=== PATIENT | female | born 1945 | race Caucasian/White ===

== ENCOUNTER → 2016-04-01 | Outpatient (CLI) | payer MEDICARE ==
--- OUTSIDE RECORDS SUMMARY | 2016-04-01 13:11 | XMS REPORT | Continuity of Care Document ---
Author Author [facility] Organization [facility] Address Unknown Phone Unavailable Care Team Providers Care Electric Organ Checker Name Role Phone MayurMaldonado PCP [phone] Source Comments Some departments are not documenting in the electronic medical record. If you do not see the information that you expected, contact Release of Information in the Health Information Management department at [phone] for further assistance in locating additional records.[facility] Active Allergies and Adverse Reactions Allergen Noted Date Severity Reactions Comments Sulfa (Sulfonamide 07/31/2014 Low NAUSEA ONLY Antibiotics) Current Medications Prescription Sig. Disp. Refills Start End Date Status Date alendronate (FOSAMAX) 70 Take 70 mg by mouth every Active mg tablet 7 days. loratadine (CLARITIN) 10 Take 10 mg by mouth Active mg tablet daily. cholecalciferol(+) Take 2,000 Units by mouth Active (VITAMIN D-3) 2,000 unit daily. tablet CALCIUM CARBONATE Take 600 mg by mouth Active (CALTRATE 600 PO) daily. DOCOSAHEXANOIC ACID/EPA Take 1,200 mg by mouth Active (FISH OIL PO) daily. 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 Botello is a female who presented [facility] on 08/04[facility]2014 at age 68 for evaluation of left breast cancer. She felt a lump at the end of May 2014. Left breast sono-guided biopsy 07/19/14 ([place], [place]) revealed grade 3, HER2 positive invasive ductal carcinoma. Ms. Botello underwent left lumpectomy/SLNB on 08/17/14; surgical pathology showed a 2.4 cm IDC and the new medial margin showed 2 foci of high grade DCIS less than 1 mm from the margin. There were 3 negative SLNs, LVSI was present. Her pathology was presented at Tumor Conference and re-excision was not recommended. She completed adjuvant chemotherapy on 12/06/14 radiation therapy on 02/22/15. BREAST IMAGING: Mammogram: -- Bilateral screening mammogram 06/21/14 ([place], [place]) revealed a focal asymmetry in the left breast medial to the nipple. There were no right breast abnormalities. -- Bilateral diagnostic mammogram 08/04/14 () revealed no right breast abnormalities. In the left breast, a clip was seen just superior to the known cancer. The cancer measured approximately 2 cm. Ultrasound: -- Left breast ultrasound 07/19/14 ([place], [place]) revealed a 1.2 cm solid mass at 12:00. There was a 4 mm cyst in the breast. -- Bilateral breast ultrasound 08/04/14 () revealed no abnormalities in the right breast. In the left breast there was a 2.4 cm mass at 12:00, 3 cm FTN. The clip was no definitely seen by ultrasound. There was no axillary adenopathy. They were waiting on her outside imaging for comparison. REPRODUCTIVE HEALTH: Age at first Menarche: 15 Age at First Live : 26 Age at Menopause: 50 : 4 Para: 4 PERTINENT PMH: HLD, osteoporosis FAMILY HISTORY: No family history of breast, ovarian, prostate or pancreatic cancer PHYSICAL EXAM on PRESENTATION: Right - No palpable breast masses. No skin, nipple, or areolar change. Left - 2 x 2 cm mass at 12:00. No supraclavicular or axillary adenopathy. MEDICAL ONCOLOGY: Dr. Alonso ADJUVANT THERAPY: Adjuvant TCH Present therapy: Herceptin REFERRED BY: Dr. Maldonado Merchant Immunizations Name Dates Previously Given Next Due Flu Vaccine Trivalent >64 11/29/2014 Yo High-dose (Preservative Free) Social History Tobacco Use Types Packs/Day Years Used Date Never Smoker Alcohol Use Drinks/Week oz/Week Comments No Last Filed Vital Signs Vital Sign Reading Time Taken Blood Pressure 135/83 12/10/2015 11:24 AM CDT Pulse 60 12/10/2015 11:24 AM CDT Temperature 36.5 C (97.7 F) 12/10/2015 11:24 AM CDT Respiratory Rate 17 12/10/2015 9:44 AM CDT Height 1.575 m (5' 2") 12/10/2015 11:24 AM CDT Weight 67.586 kg (149 lb) 12/10/2015 11:24 AM CDT Body Mass Index 27.25 12/10/2015 11:24 AM CDT Oxygen Saturation 100% 12/10/2015 11:24 AM CDT Plan of Care Date Type Specialty Providers Description 04/15/2016 Appointment Radiology Fina Lundberg, POLE TRUCK DRIVER [address] [place] [address] [phone] (Fax) 04/15/2016 Appointment Radiology Fina Lundberg, POLE TRUCK DRIVER [address] [place] [address] [phone] (Fax) 04/15/2016 Appointment Oncology Fina Lundberg, POLE TRUCK DRIVER [address] [place] [address] [phone] (Fax) 04/15/2016 Appointment Oncology Val Valle, POLE TRUCK DRIVER [address] [place] [address] [phone] (Fax) 06/09/2016 Appointment Oncology Soraida Ordaz, POLE TRUCK DRIVER [address] [place] [address] [phone] (Fax) Health Maintenance Due Date Last Done Comments Hepatitis C Screening 1945 Physical (Comprehensive) 1952 Exam Pertussis Vaccine 1956 Tetanus Vaccine 1962 Colorectal Cancer 12/24/1995 Screening Shingles Vaccine 2005 Osteoporosis Screening 2010 Prevnar/Pneumovax (#1) 2010 Influenza Vaccine 10/18/2015 11/29/2014 Breast Cancer Screening 04/10/2016 04/10/2015, 08/04/2014 Results from Last 3 Months Not on file
== END ==
LOC: ONC 13:08
PROVIDERS: ATTEND Radiology Radiation Oncology
DX: C50.412 Malignant neoplasm of upper-outer quadrant of left female breast (principal); Z17.0 Estrogen receptor positive status [ER+]
CPT/HCPCS: 99213